=== PATIENT | female | born 1965 | race Caucasian/White ===

== ENCOUNTER 2020-12-15 15:29 | Emergency (ER) | payer BC ==
[~2020-12-15] VITALS: Ht 162.6 cm; Wt 65.8 kg
--- NOTE | 2020-12-15 16:00 | NUR ---
patient came in [place] the head s/p hit her head on the car door, no loc. on room air, breathing evenly and unlabored. connected to the monitor and pulse ox. kept comfortable, will continue to monitor accordingly.
[2020-12-15] MEDS ORDERED: LIDOCAINE 1%-EPI 1:100,000 20 ML VIAL ONE (16:14)
[2020-12-15] MEDS ORDERED: ACET-2605 PO (16:26)
[2020-12-15] MEDS ORDERED: BACI30OI9 TP (16:26)
[2020-12-15 16:59] VITALS: BP 130/71
--- NOTE | 2020-12-15 16:59 | NUR ---
Patient discharged to home in stable condition. Written and verbal after care instructions given. Patient verbalizes understanding of instruction.
== END 2020-12-15 16:59 | disposition home or self-care (01) ==
LOC: ER 15:33
DX: S01.01XA Laceration without foreign body of scalp, initial encounter (principal); S80.212A Abrasion, left knee, initial encounter; I10 Essential (primary) hypertension; E78.00 Pure hypercholesterolemia, unspecified; W01.198A Fall on same level from slipping, tripping and stumbling with subsequent striking against other object, initial encounter; Y93.01 Activity, walking, marching and hiking; Y92.89 Other specified places as the place of occurrence of the external cause; Y99.8 Other external cause status
CPT/HCPCS: 12001; 70450; 72125; 99284; A6403 ×2; J3490